=== PATIENT | male | born 1950 | race Two or more races ===

== ENCOUNTER 2020-10-11 14:28 | Emergency (ER) | payer MEDICARE, OTHER ==
[~2020-10-11] VITALS: Ht 185.4 cm; Wt 61.2 kg
[2020-10-11 20:59] VITALS: BP 173/72
== END 2020-10-11 22:38 | disposition home or self-care (01) ==
LOC: ER 14:28 → EDBD 14:28 → ER 22:38
DX: R51.9 Headache, unspecified (principal)